=== PATIENT | female | born 1970 | race Caucasian/White ===

== ENCOUNTER → 2017-11-12 10:03 | Outpatient (CLI) | payer BC, SELFPAY ==
[2017-11-12 12:09] LABS: Absolute Lymphocyte Count 1.62 X10^3/ul (0.83-4.51); Absolute Neutrophil Count 5.9 X10^3/uL (2.0-7.7); Basophil# 0.04 X10^3/uL; Basophil% 0.5 % (0-1); Eosinophil# 0.17 X10^3/uL; Hematocrit 41.8 % (37-47); Hemoglobin 14.2 g/dl (12.0-15.0); Lymphocyte # 1.62 X10^3/ul (4.0); Lymphocyte % 19.5 % (19-41); Mean Corpuscular Hgb 29.9 pg (27.0-32.0); Mean Platelet Vol. 10.2 fl (6.2-12.0); Monocyte# 0.56 X10^3/uL; Monocyte% 6.7 % (0-10); Neutrophil # 5.89 X10^3/uL (2.7-7.7); Neutrophil % 71.1 % (47-70); Platelet Count 359 K/mm3 (150-450); RBC Distribution Width CV 13.6 % (11.6-14.6); RBC Distribution Width SD 43.3 fl (35.1-43.9); Red Blood Count 4.75 M/mm3 (4.2-5.4); White Blood Count 8.3 K/mm3 (4.4-11.0)
[2017-11-12 12:15] LABS: POSITIVE COUNT NO; POSITIVE DIFFERENTIAL NO; POSITIVE MORPHOLOGY NO
[2017-11-12 12:32] LABS: ALB/GLOB Ratio 0.9 RATIO (0.9-2.4); AST(SGOT) 19 U/L (15-37); Alanine Aminotransfer ALT/SGPT 42 U/L (13-56); Albumin, Serum 3.5 g/dL (3.2-5.0); Alkaline Phosphatase 70 U/L (45-117); Anion Gap 10 (5-15); BUN 15 mg/dL (7-18); Calcium,Total 8.5 mg/dL (8.5-10.1); Chloride 106 mmol/L (98-107); Cholesterol 196 mg/dL (200); Creatinine, Serum 0.71 mg/dL (0.55-1.02); EST Glomerular Filtration Rate 94 mL/min (>60); Est Glom Filt Rate - Afr Amer 114 mL/min (>60); Glucose 96 mg/dL (74-106); High Density Lipoprotein 36 mg/dL; Potassium 4.1 mmol/L (3.5-5.1); Protein, Total 7.5 g/dL (6.4-8.2); Sodium Level 139 mmol/L (136-145); Thyroid Stim Hormone (TSH) 0.59 uIU/mL (0.358-3.74); Triglycerides 159 mg/dL; Very Low Density Lipoprotein 32 mg/dL (5-40)
== END ==
PROVIDERS: Family Provider Family Medicine; PCP Family Medicine; Visit Provider Family Medicine
DX: Z00.00 Encounter for general adult medical examination without abnormal findings (principal); I10 Essential (primary) hypertension; R53.83 Other fatigue
CPT/HCPCS: 36415; 80053; 80061; 84443; 85025

== ENCOUNTER → 2018-11-04 11:43 | Outpatient (CLI) | payer BC, SELFPAY ==
[2018-11-04 10:47] VITALS: BMI 39.1
--- NOTE | 2018-11-04 11:51 | BI_ITS ---
MAMMOGRAPHY - BILATERAL SCREENING REASON FOR EXAM: Female, 47 years old. Routine annual screening examination. PERTINENT HISTORY: Mother with breast cancer. Aunts with breast cancer. TECHNIQUE: Digital bilateral breast miesha (3D mammographic acquisition) in the CC and MLO projections. 2-D mediolateral oblique (MLO) and craniocaudad (CC) views of both breasts were obtained. CAD: Full Field Digital Mammography with Computer Added Detection was performed. COMPARISON: Comparison is made with prior study dated May 21, 2017 and June 11, 2016. FINDINGS: Breast Composition: The breasts are extremely dense, which lowers the sensitivity of mammography. There are no dominant masses or suspicious calcifications. Stable appearance of the fat-containing bilateral axillary lymph nodes. No other significant abnormalities are identified. There has been no significant change since the prior study. BI/SCREENING MAMM (CAD), BILAT IMPRESSION: Stable bilateral screening mammogram. Yearly follow-up mammogram recommended. (A) ASSESSMENT CATEGORY: BIRADS Category 2: Benign. A letter regarding these results will be sent to the patient by the facility within 30 days. Approximately 10% of breast cancers are not detected by mammography. A normal mammogram should not delay biopsy of a clinically suspicious abnormality. [id number] Electronically Signed: Brown Cueva MD at 13:00 EST , Service support ,
== END ==
PROVIDERS: Family Provider Family Medicine; PCP Family Medicine; Visit Provider Obstetrics & Gynecology
DX: Z12.31 Encounter for screening mammogram for malignant neoplasm of breast (principal)
CPT/HCPCS: 77063; 77067

== ENCOUNTER → 2020-04-05 07:40 | Outpatient (CLI) | payer BC, SELFPAY ==
[2018-11-04 10:47] VITALS: BMI 39.1
--- NOTE | 2020-04-05 07:40 | BI_ITS ---
MAMMOGRAPHY - BILATERAL SCREENING 3-D TOMOSYNTHESIS REASON FOR EXAM: Female, 49 years old. Routine screening PERTINENT HISTORY: FM HX MOTHER 33, PAT AUNT 35, PAT GRT AUNT AGE?, -- PAST RT INFECTED SWEAT GLAND. TECHNIQUE: 2-D mammograms and 3-D Tomosynthesis of the breast (s) were performed. CAD was performed. COMPARISON: 11/04/2018 FINDINGS: The breast composition is extremely dense tissue Scattered benign calcifications are seen. No dense spiculated masses or suspicious microcalcifications are identified. No architectural distortion is identified. There is no skin thickening or retraction. There has been no significant change since the prior study. BI/SCREEN MAMM (CAD) W/TYESHA BILAT IMPRESSION: No mammographic signs of malignancy. Routine yearly mammograms recommended. ASSESSMENT CATEGORY: BIRADS Category 2: Benign. A letter regarding these results will be sent to the patient by the facility within 30 days. FOLLOW UP RECOMMENDATION: Yearly follow up mammogram recommended. (A) Approximately 10% of breast cancers are not detected by mammography. A normal mammogram should not delay biopsy of a clinically suspicious abnormality. Electronically Signed: Blanco Vasquez MD at 8:43 EDT , Service support ,
[2020-04-10 11:26] LABS: HPV APTIMA, High Risk Negative (Negative)
== END ==
PROVIDERS: Family Provider Family Medicine; PCP Student in an Organized Health Care Education/Training Program; Referring Provider Obstetrics & Gynecology; Visit Provider Obstetrics & Gynecology
DX: Z12.31 Encounter for screening mammogram for malignant neoplasm of breast (principal); Z12.4 Encounter for screening for malignant neoplasm of cervix
CPT/HCPCS: 77063; 77067; 87624; 88175; G0145

== ENCOUNTER → 2020-08-02 07:50 | Outpatient (CLI) | payer BC, SELFPAY ==
[2020-04-05 08:16] VITALS: BMI 39.1
[2020-07-31 09:27] VITALS: BMI 40.9
--- NOTE | 2020-08-02 08:01 | US_ITS ---
STUDY: ULTRASOUND OF THE FEMALE PELVIS - COMPLETE REASON FOR EXAM: Female, 49 years old. Dysmenorrhea LMP: 07/23/2020. TECHNIQUE: Transabdominal and Transvaginal TECHNICAL QUALITY: Adequate. COMPARISON: Comparison is made with prior study dated 08/27/2017. FINDINGS: The uterus is anteverted and is in a midline position. The uterus is enlarged and measures 13.7 cm x 7.8 cm x 4.8 cm. Normal uterine cervix. The endometrium measures 5.3 mm in thickness, and is hyperechoic. Small amount of fluid is seen within the cervical canal. There is no demonstrated endometrial mass. The uterus is of heterogeneous echotexture although no focal distinct fibroid is seen. I.U.D. - The patient does not have an I.U.D. The right ovary is visualized. The right ovary measures 4.2 cm x 4.4 cm x 3.6 cm. There is no right ovarian cyst or ovarian mass. There is no visualized right adnexal mass or complex lesion. There is normal arterial and normal venous vascularity. The left ovary is visualized. The left ovary measures 2.7 cm x 3.6 cm x 2.6 cm. There is no left ovarian cyst or ovarian mass. There is no visualized left adnexal mass or complex lesion. There is normal arterial and normal venous vascularity. There is no fluid in the cul-de-sac. The pre void volume of the bladder was 226 ml. US/Pelvic (Non ) IMPRESSION: Enlarged uterus with heterogeneous echotexture. Small amount of fluid in the endometrial canal. Electronically Signed: Brown Cueva, at 11:08 EST , Service support ,
--- NOTE | 2020-08-02 08:01 | US_ITS ---
STUDY: ULTRASOUND OF THE FEMALE PELVIS - COMPLETE REASON FOR EXAM: Female, 49 years old. Dysmenorrhea LMP: 07/23/2020. TECHNIQUE: Transabdominal and Transvaginal TECHNICAL QUALITY: Adequate. COMPARISON: Comparison is made with prior study dated 08/27/2017. FINDINGS: The uterus is anteverted and is in a midline position. The uterus is enlarged and measures 13.7 cm x 7.8 cm x 4.8 cm. Normal uterine cervix. The endometrium measures 5.3 mm in thickness, and is hyperechoic. Small amount of fluid is seen within the cervical canal. There is no demonstrated endometrial mass. The uterus is of heterogeneous echotexture although no focal distinct fibroid is seen. I.U.D. - The patient does not have an I.U.D. The right ovary is visualized. The right ovary measures 4.2 cm x 4.4 cm x 3.6 cm. There is no right ovarian cyst or ovarian mass. There is no visualized right adnexal mass or complex lesion. There is normal arterial and normal venous vascularity. The left ovary is visualized. The left ovary measures 2.7 cm x 3.6 cm x 2.6 cm. There is no left ovarian cyst or ovarian mass. There is no visualized left adnexal mass or complex lesion. There is normal arterial and normal venous vascularity. There is no fluid in the cul-de-sac. The pre void volume of the bladder was 226 ml. US/Transvaginal Non- IMPRESSION: Enlarged uterus with heterogeneous echotexture. Small amount of fluid in the endometrial canal. Electronically Signed: Brown Cueva, at 11:08 EST , Service support ,
== END ==
PROVIDERS: PCP Student in an Organized Health Care Education/Training Program; Referring Provider Obstetrics & Gynecology; Visit Provider Obstetrics & Gynecology
DX: N94.6 Dysmenorrhea, unspecified (principal)
CPT/HCPCS: 76830; 76856

== ENCOUNTER 2020-08-15 05:31 | Day surgery (SDC) | payer BC, SELFPAY ==
[2020-04-05 08:16] VITALS: BMI 39.1
[2020-07-31 09:27] VITALS: BMI 40.9
[2020-08-14 08:50] LABS: Hematocrit 42.6 % (37-47); Mean Corp Hgb Conc 32.9 g/dL (32-36); Mean Corpuscular Hgb 29.1 pg (27.0-32.0); Mean Corpuscular Volume 88.6 fL (81-99); Mean Platelet Vol. 9.8 fl (6.2-12.0); Platelet Count 389 K/mm3 (150-450); RBC Distribution Width CV 13.2 % (11.6-14.6); RBC Distribution Width SD 43.1 fl (35.1-43.9); Red Blood Count 4.81 M/mm3 (4.2-5.4); White Blood Count 9.7 K/mm3 (4.4-11.0)
[2020-08-14 09:15] LABS: Magnesium 1.8 mg/dL (1.6-2.6)
[2020-08-14 09:17] LABS: Anion Gap 7 (5-15); BUN 14 mg/dL (7-18); BUN/Creat Ratio 19.2 RATIO (10-20); Calcium,Total 8.9 mg/dL (8.5-10.1); Chloride 104 mmol/L (98-107); Creatinine, Serum 0.73 mg/dL (0.55-1.02); EST Glomerular Filtration Rate 90 mL/min (>60); Est Glom Filt Rate - Afr Amer 109 mL/min (>60); Glucose 102 mg/dL (74-106); Potassium 3.4 mmol/L (3.5-5.1); Sodium Level 138 mmol/L (136-145)
--- NOTE | 2020-08-14 15:48 | PCM.HPOB.BLA ---
- Problem List (1) Family history of malignant hyperthermia Status: Acute Comment: had anesthesia with an ablation and spinals with csections without complication (2) Hematuria Status: Acute Comment: was on menses- recommend checking at 6 week postop visit (3) Dysmenorrhea Status: Chronic Comment: s/p ablation age 39, flexeril PRN, discussed medical vs surgical management, [facility]. 14 cm uterus. plan SDS History and Physical Date of Admission: 08/15/20 Intake Vital Signs 07/31/20 Height 5 ft 3 in 07/31/20 Weight: 231 lb 07/31/20 BP 126/72 H Intake Visit Reasons: Pre-op-[facility] Central Supply Manager Required: No Is patient in pain?: No Allergies No Known Allergies Allergy (Verified 07/31/20 09:27) Medications antiarthritic combination no.2 900 mg tablet mg PO 04/05/20 [History Confirmed 07/31/20] hydrochlorothiazide 12.5 mg capsule 12.5 mg PO DAILY 04/05/20 [History Confirmed 07/31/20] multivitamin,lc-ebmv-qrzrctga 1 tab PO DAILY 04/05/20 [History Confirmed 07/31/20] paroxetine HCl 20 mg tablet 20 mg PO DAILY #30 tab 04/05/20 [Rx Confirmed 07/31/20] paroxetine HCl 20 mg tablet 20 mg PO DAILY #90 tab 04/05/20 [Rx Confirmed 07/31/20] Post menopausal: No Patient : No : No PFSH Medical History Anxiety and depression (Acute) Family history of malignant hyperthermia (Acute) History of migraine headaches (Acute) IBS (irritable bowel syndrome) (Acute) Seasonal allergies (Acute) Hypertension (Chronic) Surgical History delivery delivered (Acute) History of endometrial ablation (Acute) Family History Grandmother Heart disease Myocardial infarction, Onset Age: 70 Grandfather Diabetes Cancer Social History (Updated 07/31/20 @ 10:[address] Tiffany Martins MD) Smoking Status: Never smoker alcohol intake: current details: social substance use type: does not use caffeine: No what type of physical activity do you participate in: walking seatbelt use: always do you feel safe at home: Yes additional social history: - HPI Pre-op-LAVH: Details: RAMA THOMAS is a 49 year old who presents for Female Reproductive History Menopausal Symptoms: Yes hot flashes, Yes night sweats Pregancy History 2 Elective abortions Hx Para 2 Spontaneous abortions Hx # Term Pregnancies Ectopic pregnancies Hx # Pregnancies Multiple births # of living children Past Pregnancies Del. Date Name GA/Weeks Outcome Route Bth Weight Gen Labor Lgth Anesthesia Del Locatn Provider FOB Unknown 1993 Samanta live - full term Unknown 1996 Dheeraj live - full term ROS Const Constitutional: Reports as per HPI and night sweats; denies fatigue, increased appetite, poor appetite, weight gain or weight loss ENT ENT: Reports system reviewed and no additional complaints, except as docu Cardio Card: Denies chest pain Resp Resp: Denies cough or dyspnea GI GI: Reports as per HPI; denies abdominal pain, bloating, constipation, nausea or vomiting : Reports as per HPI, hot flashes, pelvic pain and other; denies difficulty urinating, painful urination, blood in urine, nipple discharge, prolapse symptoms, urinary frequency, urinary incontinence, urinary urgency, vaginal discharge, vaginal dryness, vaginal odor or vaginal itching Musc Musc: Denies joint pain, back pain or muscle weakness Skin Skin/Breast: Denies changing lesions, breast lump, breast pain, breast skin changes or nipple discharge Neuro Neuro: Reports system reviewed and no additional complaints, except as docu Psych Psych: Denies anxiety or depression Endo Endo: Denies cold intolerance, excessive sweating, heat intolerance or increased thirst Trevor/Lymph Hematologic/Lymphatic: Denies easy bleeding, Denies easy bruising, Denies enlarged lymph nodes Exam Const General: cooperative, healthy appearing, comfortable, no acute distress, well developed Orientation: alert HENMT Head: normal to inspection, normocephalic Ears: hearing grossly normal bilaterally, external ears normal Nose: external nose normal, nares normal Face and sinus: normal facial exam Neck Neck: normal visual inspection, no lymphadenopathy Thyroid: thyroid normal Chest Chest palpation & inspection: normal inspection of the chest Resp Effort & Inspection: normal respiratory effort Auscultation: clear to auscultation bilaterally Cardio Rate: regular rate Rhythm: regular rhythm Heart Sounds: S1 normal, S2 normal GI Inspection: normal to inspection, non-distended Palpation: soft, no hepatosplenomegaly Musc Other: gross motor intact no deficits, full bilateral strength Skin General: no rashes or lesions noted Neuro General: alert, awake, moves all extremities, no focal motor deficits Motor: muscle tone normal throughout Extrem General: normal to inspection, no pedal edema Psych Appearance: grossly normal Mental Status: mental status grossly normal Affect: normal affect Speech and Movement: speech and movement normal Assessment & Plan Problems 1. Dysmenorrhea N94.6 s/p ablation age 39, flexeril PRN, discussed medical vs surgical management, plan proceed with [facility] BS cysto. plan SDS 2. Family history of malignant hyperthermia Z84.89 had anesthesia with an ablation and spinals with csections without complication Plan After discussing the patient's diagnosis and treatment plan options, patient wishes to proceed with surgical management. I have discussed with the patient the risks, benefits, and alternatives of the procedure which include but are not limited to risks of anesthesia, bleeding, infection, possible damage to bowel, bladder, or surrounding vasculature which could lead to additional surgery to evaluate any complications. Patient agrees to procedure and wishes to proceed. ACOG/uptodate references given for additional information regarding procedure. Coding Level of Care Code No Charge Diagnoses Dysmenorrhea N94.6 Family history of malignant hyperthermia Z84.89
[2020-08-15] VITALS (11 sets, daily range): BP systolic 113–162; BP diastolic 67–92; PULSE 90–110; RESP 16–18; TEMP 35.9–36.7; O2SAT 94–100; BMI 40.9
[2020-08-15] MEDS: Phenazopyridine 95 MG Tablet 190 MG PO (06:25)
[2020-08-15] MEDS: Celecoxib 200 MG Capsule 400 MG PO (06:26)
[2020-08-15] MEDS: Scopolamine 1mg/72hr Patch 1 PATCH TD (06:27)
[2020-08-15] MEDS: Acetaminophen 500 MG Tablet 1000 MG PO ×2 (06:31→15:01)
[2020-08-15] MEDS: Gabapentin 600 MG Tablet PO (06:31)
[2020-08-15] MEDS: Enoxaparin 40 MG/0.4 ML Syringe SC (06:33)
[2020-08-15] MEDS: dexAMETHasone 10 MG/ML Vial 8 MG IV (06:33)
[2020-08-15] MEDS: Lactated Ringers 1,000 ML 40 ML IV ×2 (06:49→16:22)
[2020-08-15] MEDS: Lactated Ringers 1,000 ML 70 ML IV (07:00)
[2020-08-15 07:01] LABS: Bedside Glucose 103 mg/dL (70-110)
--- NOTE | 2020-08-15 07:30 | HYST_PTH ---
PATIENT: RAMA THOMAS [place] [facility] [id number] AGE/SX: 49/F ROOM: RE08/15/[address]: Dr. Tiffany Martins MD : 1970 BED: DIS: 08/15/2020 SPEC #: [id number] RECD: 08/15/20 11:26 STATUS: MONICA JESUS #: [id number] MIK: 08/15/20 07:[address]: Tiffany Martins DEPT: SURGICAL PATHOLOGY RECD BY: Hafsa Alvarez ENTERED: 08/15/20 12:17 SP TYPE: HYSTERECT OTHR DR: Dr. Oral Mayers DO Tissues: Uterus, NOS Procedures: Surgery Specimen Level V HEADER OPERATION: ERAS, hysterectomy, LAVH, salpingectomy, cysto PRE-OP DIAGNOSIS: Dysmenorrhea TISSUE SUBMITTED: Uterus, cervix and bilateral fallopian tubes MICROSCOPIC DIAGNOSIS Uterus, hysterectomy: Cervix - Mild chronic inflammation. Endometrium - proliferative endometrium with focal benign cystic change. Myometrium - adenomyosis and leiomyomas. Right fallopian tube - hydrosalpinx and benign paratubal cyst. Left fallopian tube - hemosalpinx. AM:ayana 08/16/20 MICROSCOPIC DESCRIPTION Slides are reviewed. GROSS DESCRIPTION Received in fixative is one container labeled with the patient's name and designated uterus, cervix and bilateral fallopian tubes. The specimen consists of a hysterectomy specimen consisting of uterus with cervix and attached bilateral fallopian tubes. The uterus with cervix weighs 170 gm and measures 10 x 6 x 5 cm. The serosal surface is garcía, glistening. The ectocervical mucosa is unremarkable. The external os is oval in contour. The endocervical canal measures 4.5 cm in length and the endocervical mucosa is unremarkable. The endometrial cavity is narrow and obliterated in the proximal portion and it measures 3 cm in length and 0.2 cm in width. The proximal portion of the endometrial cavity shows fibrous fibrosis. The endometrium is garcía, glistening and measures <0.1 cm in thickness. Sections of the uterine wall reveal trabeculated cut surfaces suspicious for adenomyosis. The uterine wall measures up to 3 cm in thickness. Sections of the uterine wall also reveal two nodular masses measuring 0.5 and 1 cm in greatest dimension. Sections of these masses reveal garcía whorled cut surfaces without areas of hemorrhage, necrosis or cystic degeneration. The right fallopian tube measures 6 cm in length and 1 cm in diameter. The proximal portion of the fallopian tube is dilated and filled with hemorrhagic material. The fimbrial end is identified. The lumen of the fallopian tube measures up to 0.8 cm in greatest dimension. No mass lesion is identified. The left fallopian tube measures 6.5 cm in length and up to 1.5 cm in diameter. The fimbrial end is identified. Sections of the fallopian tube reveal dilated lumen filled with chocolate brown material. The lumen measures up to 1.4 cm in diameter. No mass lesion is identified. [employer] sections are submitted in nine cassettes as follows: 1 - anterior cervix, 2 - posterior cervix, 3 & 4 - anterior uterine wall, 5 & 6 - posterior uterine wall, 7 - nodular masses, 8 - right fallopian tube, 9 - left fallopian tube, 10-11 additional cervix/endocervix. / DARCI:ayana 08/15/20 TC:5 CPT: 98482
[2020-08-15] MEDS: Cefazolin 2 GM in 0.9% Normal Saline 100 ML IV (07:37)
--- NOTE | 2020-08-15 07:48 | OP.PCM_ITS ---
Problem List (1) Family history of malignant hyperthermia Status: Acute Comment: had anesthesia with an ablation and spinals with csections without complication (2) Hematuria Status: Acute Comment: was on menses- recommend checking at 6 week postop visit (3) Dysmenorrhea Status: Chronic Comment: s/p ablation age 39, flexeril PRN, discussed medical vs surgical management, plan proceed with [facility] BS cysto. 14 cm uterus. plan SDS Report of Operation Date of Procedure: 08/15/20 Pre-Operative Diagnosis: previous csection x 2, enlarged uterus Post-Operative Diagnosis: same Surgery/Procedure Performed:: lavh bs cystoscopy lysis of adhesions Description of Surgical Findings:: enlraged uterus severe pelvic adheisons, limited vaginal access, morbid obesity limiting view route carrier: Misa Jones Type of Anesthesia:: General Special Medications: floseal navi Specimen's removed: uterus tubes Drains: morris Estimated Blood Loss (mL): 600 Fluids Replaced: crystalloid Description of Procedure: Patient received preoperative antibiotics and SCDs were on preoperatively. Patient was taken back to the operating room and placed in the dorsal lithotomy position. General anesthesia was induced and patient was prepped and draped in normal sterile fashion. A 8 cm and a ventricular uterine manipulator was placed without difficulty. Attention was then paid to the abdomen and an umbilical incision was made after injecting with quarter percent Marcaine and abdomen was insufflated with CO2 gas through a varies needle without complication. 5 mm ports were placed under direct visualization in the right and left lower quadrant as well as the umbilicus. Very limited visualization was seen due to morbid obesity and a narrow pelvis. Severe pelvic scar tissue was seen of the uterine corpus to the bladder from previous C-sections. Uterus was significantly enlarged with fibroids approximately 14 weeks size. Bilateral fallopian tubes were transected across the mesosalpinx to remove and the utero- ovarian ligaments were transected bilaterally using the LigaSure device. Increased vasculature was seen with pelvic congestion and due to the enlarged uterus. Vessels were attempted to be skeletonized but were difficult due to thick scar tissue from her previous . Round ligament was transected bilaterally and the broad ligament opened up. Sharp dissection was used to take down the dense adhesions anteriorly. Approximately 60 minutes were spent on adhesiolysis. After creating the bladder flap using the LigaSure device as well as hydrodissection and sharp dissection, the uterine arteries were skeletonized and transected bilaterally without complication. Attention was then paid to the vaginal portion of the procedure. Minimal uterine descensus was noted and labial sutures were placed to aid in retraction. There was very limited vaginal access but visualization was made and dilute vasopressin was injected circumferentially around the cervix. Using electrocautery a circumferential inc ision was made and the vaginal mucosa dissected off the cervix. Anterior dissection went easily without complication but posterior dissection was difficult. Due to limited vaginal access and morbid obesity longer instruments were used. cul de sac was entered sharply and long retractors used to visualize the area. While suturing one of the suture needles popped off in the vaginal cuff and was removed laparoscopically later, with careful inspection of the surrounding tissues. It was noted to have no effect on surrounding tissues. Uterosacral ligaments were clamped cut and suture ligated bilaterally with 0 Monocryl and the uterus removed without complication. Vaginal mucosa reapproximated with 2 running sutures of 0 Vicryl. The cuff was then viewed laparoscopically and noted to still have bleeding on the posterior peritoneum and due to limited vaginal access the decision for laparoscopic suturing was made. Using the Endo Stitch to posterior to anterior sutures were placed to obtain excellent hemostasis. FloSeal and then Navi were applied over the raw areas and no significant bleeding was noted. A Osiel Landeros was used to close the umbilical incision that had been enlarged to a [address] the Endo Stitch down. 0 Vicryl was used to do this stitch. Cystoscopy was then performed and bladder integrity noted to be intact with bilateral strong ureteral spray confirmed. Overall operative time was over 3 hours and therefore the patient was given an additional dose of Ancef. Patient had been given preoperative Lovenox and had SCDs on preoperatively. Patient had all port sites closed with 4-0 Monocryl and Morris replaced. Everything was removed from the patient and she was awoken and taken recovery in stable condition. Grafts/Implants Used: none Multi Select Codes - Urinary/Genital Urinary/Genital CPT Codes: 02112 Cystoscopy, 64562 LAVH+BS/O >250gr Uterus - suggest modifier for difficulty of surgery, over 3 hours, adhesiolysis 60 minutes
--- NOTE | 2020-08-15 07:50 | PCM.DC.VHY ---
Discharge Diet: No Restrictions Discharge Activity: Return to Normal Activity, May Not Drive, May Shower May resume sexual activity in: 6-8 weeks Call your doctor if your incision/area has: Continuous Slow Oozing, Sudden Increased Bleeding, Increased Pain/ Swelling, Increased Redness, Foul Smelling Discharge Call your doctor if you observe: Fever of 101 or Higher, Inability to urinate, Inability to have a bowel movement, Using more than one pad per hour Allergies/Adverse Reactions: Allergies No Known Allergies Allergy (Verified 08/15/20 06:00) Medications to take at Discharge hydrochlorothiazide 12.5 mg capsule 12.5 mg PO DAILY 04/05/20 multivitamin,we-ltao-xfnkstxt 1 tab PO DAILY 04/05/20 Glucos Sul 2Kcl/MSM/Chond/C/Mn [Glucosamine Chondroitin Cap] 1 ea PO DAILY 08/04/20 L.acidoph,Paracasei, B.lactis [Probiotic] 1 ea PO DAILY 08/04/20 Paroxetine HCl 20 mg PO DAILY 08/04/20 Pyridoxine HCl [Vitamin B-6] 100 mg PO DAILY 08/04/20 Naproxen [Naprosyn] 250 - 500 mg PO Q8H PRN PRN #30 tab 08/15/20 Oxycodone HCl/Acetaminophen [Percocet 5-325] 1 - 2 tab PO Q6H PRN PRN 7 Days #15 tab 08/15/20 The following prescriptions were given: Naproxen [Naprosyn] 250 - 500 mg PO Q8H PRN PRN #30 tab PRN Reason: MILD PAIN Transmission Status: Received by [facility] Oxycodone HCl/Acetaminophen [Percocet 5-325] 1 - 2 tab PO Q6H PRN PRN 7 Days #15 tab PRN Reason: Pain Transmission Status: Received by [facility] Primary Care Physician: Oral Mayers DO [Primary Care Provider] - Test Results: Test results from this visit will be discussed in further detail at your follow-up appointment, if applicable. Please Follow Up With: Tiffany Martins MD - [phone]
[2020-08-15] MEDS: Vasopressin 20 UNITS/ML Vial (08:50)
[2020-08-15 14:56] LABS: Hematocrit 35.3 % (37-47); Mean Corpuscular Hgb 30.4 pg (27.0-32.0); Mean Corpuscular Volume 89.4 fL (81-99); Mean Platelet Vol. 9.6 fl (6.2-12.0); Platelet Count 348 K/mm3 (150-450); RBC Distribution Width CV 13.3 % (11.6-14.6); RBC Distribution Width SD 43.5 fl (35.1-43.9); Red Blood Count 3.95 M/mm3 (4.2-5.4); White Blood Count 20.1 K/mm3 (4.4-11.0)
[2020-08-15] MEDS: Ketorolac 30 MG/ML Syringe IV (15:47)
[2020-08-15] MEDS: oxyCODONE 5 MG Tablet PO (16:22)
[2020-08-15 18:11] LABS: Hematocrit 36.2 % (37-47); Hemoglobin 12.1 g/dL (12.0-15.0)
== END 2020-08-15 18:35 | disposition home or self-care (01) ==
LOC: SDC 05:32 → AC 05:32
PROVIDERS: Anesthesiology; PCP Student in an Organized Health Care Education/Training Program; Referring Provider Obstetrics & Gynecology; Visit Provider Obstetrics & Gynecology
PROC: 0UT9FZZ Resection of Uterus, Via Natural or Artificial Opening With Percutaneous Endoscopic Assistance (ICD-10-PCS; CPT 58552; principal; 2020-08-15 07:05)
DX: N80.0 Endometriosis of uterus (principal); D25.9 Leiomyoma of uterus, unspecified; N83.8 Other noninflammatory disorders of ovary, fallopian tube and broad ligament; N83.6 Hematosalpinx; N94.6 Dysmenorrhea, unspecified; N73.6 Female pelvic peritoneal adhesions (postinfective); Z84.89 Family history of other specified conditions; Z20.828 Contact with and (suspected) exposure to other viral communicable diseases; I10 Essential (primary) hypertension; F41.9 Anxiety disorder, unspecified; F32.9 Major depressive disorder, single episode, unspecified; K58.9 Irritable bowel syndrome, unspecified; Z79.899 Other long term (current) drug therapy
CPT/HCPCS: 00944; 58552; 36415; 80048; 82962; 83735; 85014; 85018; 85027; 86850; 86900; 86901; 87426; 88307; C9803; J7120; J2405

== ENCOUNTER → 2020-09-27 10:51 | Outpatient (CLI) | payer BC, SELFPAY ==
[2020-08-31 10:59] VITALS: BMI 40.9
== END ==
PROVIDERS: PCP Student in an Organized Health Care Education/Training Program; Referring Provider Nurse Practitioner Women's Health; Visit Provider Nurse Practitioner Women's Health
DX: R31.9 Hematuria, unspecified (principal)
CPT/HCPCS: 87086; 87088

== ENCOUNTER → 2021-04-25 10:05 | Outpatient (CLI) | payer BC, SELFPAY ==
[2020-08-31 10:59] VITALS: BMI 40.9
--- NOTE | 2021-04-25 10:07 | BI_ITS ---
MAMMOGRAPHY - BILATERAL SCREENING REASON FOR EXAM: Female, 50 years old. Routine annual screening examination. PERTINENT HISTORY: Mother with breast cancer. Aunt with breast cancer. TECHNIQUE: Digital bilateral breast tyesha (3D mammographic acquisition) in the CC and MLO projections. 2-D mediolateral oblique (MLO) and craniocaudad (CC) views of both breasts were obtained. CAD: Full Field Digital Mammography with Computer Added Detection was performed. COMPARISON: Comparison is made with prior examination dated 04/05/2020 and 11/04/2018 FINDINGS: Breast Composition: The breasts are extremely dense, which lowers the sensitivity of mammography. There are no dominant masses or suspicious calcifications. Stable benign-appearing bilateral axillary No other significant abnormalities are identified. There has been no significant change since the prior study. BI/SCRN MAMM (CAD)W/TYESHA BILAT IMPRESSION: Stable bilateral screening mammogram. Yearly follow-up mammogram recommended. (A) ASSESSMENT CATEGORY: BIRADS Category 2: Benign. A letter regarding these results will be sent to the patient by the facility within 30 days. Approximately 10% of breast cancers are not detected by mammography. A normal mammogram should not delay biopsy of a clinically suspicious abnormality. [id number] Electronically Signed: Brown Cueva MD at 11:17 EDT , Service support ,
== END ==
PROVIDERS: PCP Student in an Organized Health Care Education/Training Program; Visit Provider Nurse Practitioner Women's Health
DX: Z12.31 Encounter for screening mammogram for malignant neoplasm of breast (principal)
CPT/HCPCS: 77063; 77067

== ENCOUNTER → 2021-06-27 | Outpatient (CLI) | payer BC, SELFPAY | END | disposition home or self-care (01) | LOC: LABSPEC 11:21 | PROVIDERS: PCP Student in an Organized Health Care Education/Training Program; Referring Provider Physician Assistant; Visit Provider Physician Assistant | DX: Z11.52 Encounter for screening for COVID-19 (principal) | CPT/HCPCS: 87635; U0005; U0003 ==

== ENCOUNTER → 2022-05-08 | Outpatient (CLI) | payer BC, SELFPAY ==
--- NOTE | 2022-05-08 07:53 | BI_ITS ---
MAMMOGRAPHY - BILATERAL SCREENING REASON FOR EXAM: Female, 51 years old. Routine annual screening examination. PERTINENT HISTORY: Mother with breast cancer. Aunt with breast cancer. TECHNIQUE: Digital bilateral breast tyesha (3D mammographic acquisition) in the CC and MLO projections. 2-D mediolateral oblique (MLO) and craniocaudad (CC) views of both breasts were obtained. CAD: Full Field Digital Mammography with Computer Added Detection was performed. COMPARISON: Comparison is made with prior study dated 04/25/2021 and 04/05/2020. FINDINGS: Breast Composition: The breasts are extremely dense, which lowers the sensitivity of mammography. There are no dominant masses or suspicious calcifications. Stable benign-appearing bilateral axillary lymph nodes. No other significant abnormalities are identified. There has been no significant change since the prior study. BI/SCRN MAMM (CAD)W/TYESHA BILAT IMPRESSION: Stable bilateral screening mammogram. Yearly follow-up mammogram recommended. (A) ASSESSMENT CATEGORY: BIRADS Category 2: Benign. A letter regarding these results will be sent to the patient by the facility within 30 days. Approximately 10% of breast cancers are not detected by mammography. A normal mammogram should not delay biopsy of a clinically suspicious abnormality. [id number] Electronically Signed: Brown Cueva MD at 8:54 EDT ,
== END | disposition home or self-care (01) ==
PROVIDERS: PCP Student in an Organized Health Care Education/Training Program; Visit Provider Obstetrics & Gynecology
DX: Z12.31 Encounter for screening mammogram for malignant neoplasm of breast (principal)
CPT/HCPCS: 77063; 77067

== ENCOUNTER → 2023-06-04 | Outpatient (CLI) | payer BC, SELFPAY ==
--- NOTE | 2023-06-04 13:29 | BI_ITS ---
MAMMOGRAPHY - BILATERAL SCREENING REASON FOR EXAM: Female, 52 years old. Routine annual screening examination. PERTINENT HISTORY: Mother with breast cancer. Aunt with breast cancer. Bruising along the lateral aspect of the right breast. TECHNIQUE: Digital bilateral breast tyesha (3D mammographic acquisition) in the CC and MLO projections. 2-D mediolateral oblique (MLO) and craniocaudad (CC) views of both breasts were obtained. CAD: Full Field Digital Mammography with Computer Added Detection was performed. COMPARISON: Comparison is made with prior examination May 08, 2022 and April 25, 2021. FINDINGS: Breast Composition: The breasts are extremely dense, which lowers the sensitivity of mammography. There are no dominant masses or suspicious calcifications. Stable benign-appearing bilateral axillary lymph nodes. No other significant abnormalities are identified. There has been no significant change since the prior study. BI/SCRN MAMM (CAD)W/TYESHA BILAT IMPRESSION: Stable bilateral screening mammogram. Yearly follow-up mammogram recommended. (A) ASSESSMENT CATEGORY: BIRADS Category 2: Benign. A letter regarding these results will be sent to the patient by the facility within 30 days. Approximately 10% of breast cancers are not detected by mammography. A normal mammogram should not delay biopsy of a clinically suspicious abnormality. [id number] Electronically Signed: Brown Cueva MD at 14:31 EDT ,
== END | disposition home or self-care (01) ==
LOC: OPBI 13:28
PROVIDERS: PCP Student in an Organized Health Care Education/Training Program; Referring Provider Obstetrics & Gynecology; Visit Provider Obstetrics & Gynecology
DX: Z12.31 Encounter for screening mammogram for malignant neoplasm of breast (principal); Z80.3 Family history of malignant neoplasm of breast
CPT/HCPCS: 77063; 77067

== ENCOUNTER → 2024-08-24 | Outpatient (CLI) | payer BC, SELFPAY ==
--- NOTE | 2024-08-24 12:17 | BI_ITS ---
MAMMOGRAPHY - BILATERAL SCREENING REASON FOR EXAM: Female, 53 years old. Routine annual screening examination. PERTINENT HISTORY: Mother with breast cancer. Aunt with breast cancer. TECHNIQUE: Digital bilateral breast tyesha (3D mammographic acquisition) in the CC and MLO projections. 2-D mediolateral oblique (MLO) and craniocaudad (CC) views of both breasts were obtained. CAD: Full Field Digital Mammography with Computer Added Detection was performed. COMPARISON: Comparison is made with prior study June 04, 2023 and May 08, 2022. FINDINGS: Breast Composition: The breasts are extremely dense, which lowers the sensitivity of mammography. There are no dominant masses or suspicious calcifications. Stable fat-containing bilateral axillary lymph nodes. No other significant abnormalities are identified. There has been no significant change since the prior study. BI/SCRN MAMM (CAD)W/TYESHA BILAT IMPRESSION: Stable bilateral screening mammogram. Yearly follow-up mammogram recommended. (A) ASSESSMENT CATEGORY: BIRADS Category 2: Benign. A letter regarding these results will be sent to the patient by the facility within 30 days. Approximately 10% of breast cancers are not detected by mammography. A normal mammogram should not delay biopsy of a clinically suspicious abnormality. [id number] Electronically Signed: Brown Cueva MD at 13:01 EST ,
== END | disposition home or self-care (01) ==
LOC: OPBI 12:15
PROVIDERS: PCP Student in an Organized Health Care Education/Training Program; Referring Provider Student in an Organized Health Care Education/Training Program; Visit Provider Student in an Organized Health Care Education/Training Program
DX: Z12.31 Encounter for screening mammogram for malignant neoplasm of breast (principal); Z80.3 Family history of malignant neoplasm of breast
CPT/HCPCS: 77063; 77067